=== PATIENT | female | born 1995 | race Caucasian/White ===

== ENCOUNTER 2017-01-11 23:41 | Emergency (ER) | payer BC, OTHER ==
[~2017-01-11] VITALS: Ht 162.6 cm; Wt 104.3 kg
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
[2017-01-12] MEDS ORDERED: CYCL10TA9 PO (01:08)
[2017-01-12] MEDS ORDERED: NAPR500T4 PO (01:08)
[2017-01-12] MEDS ORDERED: RX-NAPROXEN (NAPROSYN) 250 MG TAB PPK#4 PO STA (01:09)
[2017-01-12] MEDS ORDERED: RX-CYCLOBENZAPRINE 10 MG (FLEXERIL) TAB PPK#3 PO STA (01:09)
[2017-01-12 01:15] VITALS: BP 148/89
[2017-01-12] MEDS ORDERED: NS 100 ML (IVPB) BAG IV ONE (01:15)
[2017-01-12] MEDS ORDERED: IOHEXOL 350 MG/ML 100 ML (OMNIPAQUE 350) VIAL IV ONE (01:15)
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
--- NOTE | 2017-01-12 07:32 | Diagnostic Imaging Report ---
INDICATION: Left shoulder injury. COMPARISON: None. FINDINGS: Three views of the left shoulder demonstrate no fracture or dislocation. Articular surfaces are normal. No osseous lesion. IMPRESSION: Negative left shoulder. Dictated by: Dictated on workstation # [id number]
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
--- NOTE | 2017-01-12 07:35 | Diagnostic Imaging Report ---
INDICATION: Right hip pain. COMPARISON: None. FINDINGS: 2 views of the right hip demonstrate no fracture or dislocation. Articular surfaces are normal. IMPRESSION: Negative right hip. Dictated by: Dictated on workstation # [id number]
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
== END 2017-01-12 01:15 | disposition home or self-care (01) ==
LOC: ER 23:43
DX: S16.1XXA Strain of muscle, fascia and tendon at neck level, initial encounter (principal); S76.011A Strain of muscle, fascia and tendon of right hip, initial encounter; S20.219A Contusion of unspecified front wall of thorax, initial encounter; V99.XXXA Unspecified transport accident, initial encounter
CPT/HCPCS: 71010; 71260; 72125; 72170; 73030; 73502; 74177; 99283

== ENCOUNTER 2017-04-08 07:37 | Emergency (ER) | payer BC ==
[~2017-04-08] VITALS: Ht 162.6 cm; Wt 104.3 kg
[~2017-04-08 07:37] MED LIST: CYCL10TA9 PO; NAPR500T4 PO
--- NOTE | 2017-04-08 08:46 | ED General ---
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 She states the symptoms started on April 05 with severe pain in the left knee that then spread to the left elbow. She states that she now has widespread arthralgia that includes the elbows, knees, ankles, wrists, and back. She took some naproxen yesterday morning that was somewhat helpful. She has not taken any medications in the last 24 hours. She tried smoking marijuana last night which did not help her very much. She is afebrile. She denies any fevers at home. She also tried a muscle relaxer with the naproxen but does not think that helped much. Last menstrual period was last week. She denies any personal or family history of autoimmune problems. She denies any recent tick bites or potential for tick bites and denies travel outside of the country. Allergies and Home Medications Allergies Coded Allergies: No Known Drug Allergies (Unverified , 01/11/17) Home Medications Cyclobenzaprine HCl 10 Mg Tablet, 10 MG PO Q8H, #15 Prescribed by: JADA NORRIS on 01/12/17 0108 Naproxen 500 Mg Tablet, 500 MG PO BID, #20 Prescribed by: JADA NORRIS on 01/12/17 0108 Constitutional: no symptoms reported EENTM: no symptoms reported Respiratory: no symptoms reported Cardiovascular: no symptoms reported Gastrointestinal: no symptoms reported Genitourinary: no symptoms reported : No Expected Date of Delivery: Apr 01, 2017 Musculoskeletal: see HPI Skin: no symptoms reported Psychiatric/Neurological: No Symptoms Reported Hematologic/Lymphatic: No Symptoms Reported Past Cydnsfx-Swwzry-Ecjlwi Hx Patient Social History 2nd Hand Smoke Exposure: No Recent Foreign Travel: No Contact w/Someone Who Travel: No Recent Hopitalizations: No Seasonal Allergies Seasonal Allergies: No Surgeries History of Surgeries: Yes Surgeries: Adenoidectomy, Tonsillectomy Respiratory History of Respiratory Disorde: No Cardiovascular History of Cardiac Disorders: No Neurological History of Neurological Disord: No Reproductive System Female Reproductive Disorders: Denies Genitourinary History of Genitourinary Disor: No Gastrointestinal History of Gastrointestinal Di: Yes Gastrointestinal Disorders: Gall Bladder Disease Musculoskeletal History of Musculoskeletal Dis: No Endocrine History of Endocrine Disorders: No HEENT History of HEENT Disorders: No Cancer History of Cancer: No Psychosocial History of Psychiatric Problem: Yes Behavioral Health Disorders: Anxiety Integumentary History of Skin or Integumenta: No Blood Transfusions History of Blood Disorders: No Adverse Reaction to a Blood Tr: No Physical Exam Vital Signs Vital Sign - Last 12Hours 04/08/17 08:31 Temp 98.2 Pulse 121 Resp 20 B/P (MAP) 117/71 (86) Pulse Ox 98 O2 Delivery Room Air Capillary Refill : General Appearance: WD/WN, Mild Distress (tearful) HEENT: PERRL/EOMI, TMs Normal, Normal ENT Inspection, Pharynx Normal Neck: Normal Inspection, Non Tender, Supple, No Thyromegaly Respiratory: Lungs Clear, Normal Breath Sounds, No Accessory Muscle Use, No Respiratory Distress Cardiovascular: No Edema, No Murmur, Tachycardia Gastrointestinal: Normal Bowel Sounds, Non Tender, Soft Extremity: Normal Inspection, Other (tenderness noted over the knee joints. Fingers normal. Pain with range of motion in the bilateral knees and hips. 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 I did discuss other etiologies such as autoimmune disorder with the patient. I offered screening with labs and treatment of pain with Toradol. Patient wishes to take a conservative approach at this time and treat with anti-inflammatories and observe at home. See discharge instructions for further conversation with patient. Patient was noted to be tearful prior to dismissal because of the pain. She was again offered Toradol but again declined. She was encouraged to return if she changes her mind or if symptoms worsen. She was escorted out by a solar panel installer in a wheelchair. Departure Impression Impression: Primary Impression: Arthralgia Qualified Codes: M25.50 - Pain in unspecified joint Disposition: 01 HOME, SELF-CARE Condition: Stable Departure-Patient Inst. Referrals: [facility] (PCP/Family) Primary Care Physician Patient Instructions: ARTHRALGIA Add. Discharge Instructions: Your joint aches are most likely due to a viral illness but could be related to other conditions such as rheumatoid arthritis or other autoimmune conditions. Drink plenty of clear liquids and use ibuprofen up to 800 mg every 8 hours as needed for pain. Add Tylenol (acetaminophen) up to 1000 mg every 6 hours as needed for pain not controlled by ibuprofen. If you're not improving in the next 48 hours or if symptoms linger for more than 5 days, please return to care either through the emergency room or the [facility]. Further evaluation could be performed there. Avoid use of marijuana products as they may have unintended legal or health consequences and are not the most appropriate treatment for your symptoms. Naproxen 500 mg twice daily can be used as a substitute for ibuprofen. All discharge instructions reviewed with patient and/or family. Voiced understanding. JOHNNY KAPOOR MD Apr 08, 2017 08:46
[2017-04-08 08:52] VITALS: BP 117/71
== END 2017-04-08 08:52 | disposition home or self-care (01) ==
LOC: EDUNIT# 07:37 → ER 07:41
DX: M25.562 Pain in left knee (principal); M25.561 Pain in right knee; M25.551 Pain in right hip; M25.552 Pain in left hip; M25.531 Pain in right wrist; M25.532 Pain in left wrist; M25.522 Pain in left elbow; M25.521 Pain in right elbow; F41.9 Anxiety disorder, unspecified; Z90.89 Acquired absence of other organs; Z87.19 Personal history of other diseases of the digestive system
CPT/HCPCS: 99281